=== PATIENT | female | born 1995 ===

== ENCOUNTER 2022-06-24 15:16 | Outpatient (CLI) | payer OTHER | END 2022-06-24 16:49 | disposition home or self-care (01) | LOC: PRENATAL 15:16 | PROVIDERS: ATTEND Obstetrics & Gynecology Maternal & Fetal Medicine | DX: O35.0XX0 Maternal care for (suspected) central nervous system malformation in fetus, not applicable or unspecified (principal); O35.3XX0 Maternal care for (suspected) damage to fetus from viral disease in mother, not applicable or unspecified; O26.879 Cervical shortening, unspecified trimester; O44.00 Complete placenta previa NOS or without hemorrhage, unspecified trimester; Z88.0 Allergy status to penicillin; Z3A.20 20 weeks gestation of pregnancy ==

== ENCOUNTER 2022-10-16 17:12 | Inpatient (IN) | payer OTHER ==
[~2022-10-16] VITALS: Ht 160 cm; Wt 69.9 kg
[~2022-10-16 17:12] MED LIST: PRENATABS RX T1 EACH PO
== END 2022-10-18 15:54 | disposition home or self-care (01) | DRG 807 ==
LOC: LDR 17:12 → OB/GYN 10-17 03:24
PROVIDERS: ADMIT Obstetrics & Gynecology; ATTEND Obstetrics & Gynecology
PROC: 4A1HXCZ Monitoring of Products of Conception, Cardiac Rate, External Approach (ICD-10-PCS; 2022-10-16)
PROC: 10E0XZZ Delivery of Products of Conception, External Approach (ICD-10-PCS; principal; 2022-10-17)
DX: O80 Encounter for full-term uncomplicated delivery (principal); Z37.0 Single live birth; Z3A.38 38 weeks gestation of pregnancy; Z20.822 Contact with and (suspected) exposure to COVID-19